=== PATIENT | male | born 1980 | race Caucasian/White ===

== ENCOUNTER 2017-10-21 18:18 | Emergency (ER) | payer MEDICAID, SELFPAY ==
[2017-10-21 18:19] VITALS: BP 112/71; PULSE 100; RESP 18; TEMP 37.1; O2SAT 98; BMI 25.7
[2017-10-21 18:36] VITALS: BP 116/83; PULSE 102; RESP 23; O2SAT 95
[2017-10-21] MEDS: 0.9% Normal Saline 1,000 ML 1000 ML IV (18:50)
[2017-10-21 19:05] LABS: Absolute Lymphocyte Count 2.97 X10^3/ul (0.83-4.51); Absolute Neutrophil Count 5.6 X10^3/uL (2.0-7.7); Basophil# 0.04 X10^3/uL; Basophil% 0.4 % (0-1); Eosinophil# 1.06 X10^3/uL; Eosinophils% 10.1 % (0-5); Hematocrit 37.7 % (40-54); Hemoglobin 13.2 g/dl (13.0-16.5); Lymphocyte # 2.97 X10^3/ul (4.0); Lymphocyte % 28.3 % (19-41); Mean Corpuscular Hgb 30.8 pg (27.0-32.0); Mean Corpuscular Volume 87.9 fL (80-94); Mean Platelet Vol. 10.4 fl (6.2-12.0); Monocyte# 0.77 X10^3/uL; Monocyte% 7.3 % (0-10); Neutrophil # 5.64 X10^3/uL (2.7-7.7); Neutrophil % 53.6 % (47-70); Platelet Count 276 K/mm3 (150-450); RBC Distribution Width SD 41.2 fl (35.1-43.9); Red Blood Count 4.29 M/mm3 (4.6-6.2); White Blood Count 10.5 K/mm3 (4.4-11.0)
[2017-10-21 19:14] LABS: Anion Gap 12 (5-15); BUN 16 mg/dL (7-18); BUN/Creat Ratio 16.4 RATIO (10-20); Calcium,Total 8.6 mg/dL (8.5-10.1); Chloride 107 mmol/L (98-107); Creatinine, Serum 0.97 mg/dL (0.70-1.30); EST Glomerular Filtration Rate 93 mL/min (>60); Est Glom Filt Rate - Afr Amer 112 mL/min (>60); Estimated Creatinine Clearance 102.84 ml/min; Glucose 110 mg/dL (74-106); Potassium 3.5 mmol/L (3.5-5.1); Sodium Level 143 mmol/L (136-145)
[2017-10-21 19:17] LABS: POSITIVE COUNT NO; POSITIVE DIFFERENTIAL NO; POSITIVE MORPHOLOGY NO
--- NOTE | 2017-10-21 19:39 | ED.VISSUMM ---
- ER Visit Summary Date of Service: 10/21/17 Chief Complaint: Lightheaded History of Present Illness: The patient is a 37 M presenting with chronic lightheadedness. He has been dealing with this since childhood. He states that he had an ablation at age 19 and did well until his mid 20s. He has had intermittent issues with it essentially for most of his adult life since then. It has been worse for the past 6-8 months. 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 He recently wore a Holter monitor which was reportedly normal and had a negative stress test. He has had negative MRIs and CTs of his brain as well and multiple recent blood tests which have been normal. He denies any new or concerning features but states that it was somewhat worse earlier this morning and he just wants answers. He is actually feeling better now and has no complaints on arrival. Physical Examination: Vitals are within normal limits. He is not in distress. Neck is supple. Heart tones are regular and without murmur. Lungs are clear bilaterally. Abdomen is soft and nontender. He has no tenderness along the venous system in his lower extremities, palpable cords, or other evidence of DVT. Neurologic exam is normal. Test Results: CBC and BMP were normal here. EKG is unremarkable. Vitals are within normal limits. Emergency Department Course and Treatment: Has no evidence of DVT. Neurologic exam is normal. He has had an extensive workup for this and is currently scheduled for a tilt table test. I do not feel there is any further emergency department testing that we will get him an answer and since he is asymptomatic right now, I feel he can safely be discharged home to continue his outpatient workup with his aviation ordnance officer and specialist. Treatment Plan: Follow up closely with his specialist Disposition: Home in stable condition Impression: Initial encounter chronic lightheadedness uncertain etiology This note was generated with [employer] dictation software. It may contain incorrect words, spelling, and punctuation that were not noted in review of the chart prior to signing ED Disposition - Plan for ED Patient: Chief Complaint: Dizziness Instructions: ED Near Syncope Unkn Referrals: Daly Osborn, [id number] [Primary Care Provider] -
[2017-10-21 19:49] VITALS: BP 118/72; PULSE 73; RESP 16; O2SAT 96
== END 2017-10-21 19:50 | disposition home or self-care (01) ==
LOC: ED 19:06
PROVIDERS: Emergency Provider Emergency Medicine; Family Provider Nurse Practitioner Family; PCP Nurse Practitioner Family
DX: R42 Dizziness and giddiness (principal); Z79.899 Other long term (current) drug therapy
CPT/HCPCS: 80048; 85025; 93005; 96360; 99283; J7030